=== PATIENT | female | born 1990 | race African-American/Black ===

== ENCOUNTER 2019-03-12 21:27 | Emergency (ER) | payer MEDICAID ==
[~2019-03-12] VITALS: Ht 160 cm; Wt 95.0 kg
[2019-03-12 23:48] LABS: CLARITY URINE CLOUDY (CLEAR); COLOR URINE YELLOW (YELLOW); KETONES URINE TRACE (NEGATIVE); LEUKOCYTE ESTERASE URINE 1+ (NEGATIVE); NITRITE URINE NEGATIVE (NEGATIVE); OCCULT BLOOD URINE NEGATIVE (NEGATIVE); PH URINE 5.5 (4.5-8.0); PROTEIN URINE NEGATIVE (NEGATIVE); SPECIFIC GRAVITY URINE 1.027 (1.005-1.030); UROBILINOGEN URINE 0.2 E.U./dL (0.2-1.0)
[2019-03-13 00:13] LABS: BASOPHILS % 0.7 % (0.0-2.0); EOSINOPHILS % 3.3 % (0.0-5.0); HEMATOCRIT. 35.9 % (36.0-48.0); HEMOGLOBIN. 12.2 g/dL (12.0-16.0); LYMPHOCYTES % 20.5 % (20.0-50.0); MEAN CORPUSCULAR HEMOGLOBIN 29.3 pg (28.0-32.0); MEAN CORPUSCULAR VOLUME 85.7 fL (81.0-99.0); MEAN PLATELET VOLUME 10.6 fl (7.4-10.4); MONOCYTES % 6.5 % (2.0-8.0); PLATELET 238 x1000/uL (130-400); RED BLOOD CELL COUNT 4.18 mill/uL (4.2-5.4); RED CELL DISTRIBUTION WIDTH 14.4 % (11.6-14.6)
[2019-03-13 00:26] LABS: CHLORIDE 109 mEq/L (98-107)
[2019-03-13 00:58] LABS: B-HCG QUANTITATIVE 14192 mIU/mL (<3)
[2019-03-13 02:16] VITALS: BP 112/78
== END 2019-03-13 02:16 | disposition home or self-care (01) ==
LOC: ER 21:27 → EDBD 21:27 → ER 03-13 02:16
DX: O23.42 Unspecified infection of urinary tract in pregnancy, second trimester (principal); O46.92 Antepartum hemorrhage, unspecified, second trimester; Z3A.18 18 weeks gestation of pregnancy; Z98.890 Other specified postprocedural states; V43.92XA Unspecified car occupant injured in collision with other type car in traffic accident, initial encounter; Y93.89 Activity, other specified; Y92.89 Other specified places as the place of occurrence of the external cause; Y99.8 Other external cause status
CPT/HCPCS: 36415; 76805; 81003; 81025; 84702; 86850; 86900; 99284

== ENCOUNTER 2021-04-17 08:48 | Emergency (ER) | payer MEDICAID ==
[~2021-04-17] VITALS: Ht 160 cm; Wt 104.0 kg
[2021-04-17] MEDS ORDERED: IBUPROFEN 600MG TABLET PO ONE (10:30)
[2021-04-17] MEDS ORDERED: TETANUS AND DIPHTHERIA TOX/PF 0.5ML SYR (ADULT) IM ONE (11:45)
[2021-04-17 11:55] VITALS: BP 119/65
== END 2021-04-17 12:05 | disposition home or self-care (01) ==
LOC: ER 08:48
DX: S90.812A Abrasion, left foot, initial encounter (principal); Z98.890 Other specified postprocedural states; W18.30XA Fall on same level, unspecified, initial encounter; Y93.89 Activity, other specified; Y92.89 Other specified places as the place of occurrence of the external cause; Y99.8 Other external cause status
CPT/HCPCS: 73630; 90471; 90714; 96372; 99283